=== PATIENT | male | born 1955 | race Two or more races ===

== ENCOUNTER 2024-11-13 17:57 | Inpatient (IN) | payer MEDICAID ==
[~2024-11-13] VITALS: Ht 147.3 cm; Wt 65.1 kg
[~2024-11-13 17:57] MED LIST: APIX5TAB3 PO; ATOR-2; DIGO125T PO; FINA5TAB11; FURO40TA4; INSU100I39 SQ; LISI2.5T14; METO-395 PO
[2024-11-13] MEDS ORDERED: pantoprazole 40mg IV 80 MG in normal saline 100ml IV soln 100 ML IV ONE (18:10)
[2024-11-13] MEDS: pantoprazole 40 MG vial IV ONE (18:20)
[2024-11-13 18:22] LABS: BASOPHILS % (AUTO) 0.9 % (0-1); EOSINOPHILS # (AUTO) 0.1 X10'3 (0-0.9); EOSINOPHILS % (AUTO) 1.6 % (0-6); LYMPHOCYTES # (AUTO) 0.8 X10'3 (1.1-4.8); LYMPHOCYTES % (AUTO) 18.7 % (21-51); MEAN CORPUSCULAR HEMOGLOBIN 28.3 PG (27.0-31.0); MEAN CORPUSCULAR HGB CONC 32.7 g/dL (33.0-36.5); MEAN CORPUSCULAR VOLUME 86.3 FL (78-98); MEAN PLATELET VOLUME 8.2 FL (7.4-10.4); MONOCYTES # (AUTO) 0.3 X10'3 (0-0.9); MONOCYTES % (AUTO) 5.9 % (2-12); NEUTROPHILS # (AUTO) 3.1 X10'3 (1.8-7.7); NEUTROPHILS % (AUTO) 72.9 % (42-75); PLATELET COUNT 142 X10'3 (140-440); RED BLOOD COUNT 1.81 X10'6 (4.70-6.10); RED CELL DISTRIBUTION WIDTH 17.6 % (11.5-14.5); WHITE BLOOD COUNT 4.3 X10'3 (4.5-11.0)
[2024-11-13 18:28] LABS: HEMOGLOBIN 5.1 g/dl (14.0-17.9)
[2024-11-13 18:29] LABS: HEMATOCRIT 15.6 % (42.0-52.0)
[2024-11-13 18:38] LABS: INR 1.5 INR; PROTHROMBIN TIME 15.1 SECONDS (9.0-12.0)
[2024-11-13 18:44] LABS: ALBUMIN 1.2 G/DL (3.4-5.0); ANION GAP -1 (8-16); BLOOD UREA NITROGEN 78 MG/DL (7-18); BUN/CREATININE RATIO 81.3 (10.0-20.0); CALCIUM 7.2 MG/DL (8.5-10.1); CHLORIDE 106 MMOL/L (99-107); CREATININE 0.96 MG/DL (0.60-1.10); GLUCOSE 152 MG/DL (70-104); MAGNESIUM 1.9 MG/DL (1.5-2.4); POTASSIUM 5.5 MMOL/L (3.5-5.1); SODIUM 137 MMOL/L (135-145); TOTAL CARBON DIOXIDE 32.3 MMOL/L (24-32); eCRCL 46 ML/MIN; eGFR 77 ML/MIN
[2024-11-13] MEDS: STERILE IV ONE (19:05)
[2024-11-13] MEDS: WATER FOR INJECTION IV ONE (19:05)
[2024-11-13] MEDS: HUM PROTHROMB CPLX LANS IV ONE (19:05)
[2024-11-13] MEDS ORDERED: midazolam 1 mg/ML 2ml injection IV ONE (19:15)
[2024-11-13] MEDS: normal saline 1000ml 1,000 ML IV ONE (19:31)
[2024-11-13 19:33] LABS: BILIRUBIN,URINE NEGATIVE (Neg); CLARITY,URINE SLIGHTLY CLOUDY (Clear); COLOR,URINE YELLOW (Yellow); GLUCOSE, URINE NEGATIVE (Neg); KETONES,URINE NEGATIVE (Neg); LEUKOCYTE ESTERASE ,URINE SMALL (Neg); NITRITES, URINE NEGATIVE (Neg); OCCULT BLOOD,URINE MODERATE (Neg); PROTEIN,URINE 100 mg/dl (Neg); UROBILINOGEN,URINE 0.2 E.U/dL (0.2-1.0)
[2024-11-13 19:41] LABS: UA COLLECTION TYPE FOLEY CATH
[2024-11-13 19:43] LABS: BACTERIA,URINE NONE SEEN /HPF (Neg); MUCUS STRANDS FEW /LPF (Neg); SQUAMOUS EPITHELIAL CELL,UR FEW /LPF (FEW); YEAST FEW /HPF (NEGATIVE)
[2024-11-13 19:44] LABS: WBC CLUMPS,URINE FEW /HPF (NEGATIVE)
[2024-11-13] MEDS ORDERED: INSU300I12 SQ (19:59)
[2024-11-13] MEDS ORDERED: furosemide IV (19:59)
[2024-11-13] MEDS: calcium chloride 100 MG/1 ML inj IV ONE (20:00)
[2024-11-13 20:09] VITALS: BP 104/63; PULSE 90; RESP 14; TEMP 98.2
[2024-11-13 20:24] VITALS: BP 142/109; PULSE 90; RESP 16; TEMP 98.2
[2024-11-13 20:27] VITALS: BP 108/44; PULSE 86; RESP 18; TEMP 97.4
[2024-11-13 20:50] VITALS: BP 109/54; PULSE 86; RESP 21; TEMP 98.2
[2024-11-13] MEDS: pantoprazole 40MG/NS 100ML BAG 100 ML IV SCH (20:51)
[2024-11-13] MEDS ORDERED: magnesium hydroxide 30ml (MOM) UD suspension PO PRN (21:35)
[2024-11-13] MEDS ORDERED: potassium Cl 20 mEq SR tablet PO PRN ×2 (21:35)
[2024-11-13] MEDS ORDERED: magnesium Cl slow-release 64mg tablet PO PRN (21:35)
[2024-11-13] MEDS ORDERED: magnesium sulf-water 2g/50mL 50 ML IV PRN (21:35)
[2024-11-13] MEDS ORDERED: mag hydrox/Alum hydrox/simeth 30ml oral suspension PO PRN (21:35)
[2024-11-13] MEDS ORDERED: magnesium sulf-water 4G/100mL 100 ML IV PRN (21:35)
[2024-11-13] MEDS ORDERED: ondansetron/PF 4mg/2ml inj IV PRN (21:35)
[2024-11-13] MEDS ORDERED: potassium Cl 40MEQ/1/2NS 520ml 520 ML IV PRN (21:35)
[2024-11-13] MEDS ORDERED: acetaminophen 325mg tablet PO PRN (21:35)
[2024-11-13 22:20] LABS: HEMATOCRIT 27.8 % (42.0-52.0); HEMOGLOBIN 9.3 g/dl (14.0-17.9); MEAN CORPUSCULAR HEMOGLOBIN 29.4 PG (27.0-31.0); MEAN CORPUSCULAR HGB CONC 33.5 g/dL (33.0-36.5); MEAN CORPUSCULAR VOLUME 87.6 FL (78-98); MEAN PLATELET VOLUME 8.6 FL (7.4-10.4); PLATELET COUNT 128 X10'3 (140-440); RED BLOOD COUNT 3.17 X10'6 (4.70-6.10); RED CELL DISTRIBUTION WIDTH 17.7 % (11.5-14.5); WHITE BLOOD COUNT 5.9 X10'3 (4.5-11.0)
[2024-11-13 23:00] VITALS: BP 96/36; PULSE 74; RESP 18; O2SAT 97
[2024-11-13] MEDS ORDERED: DEXTROSE 15 GM of carb/4 tabs (each vial/BOTTLE has 4 tablets) PO PRN ×2 (23:15)
[2024-11-13] MEDS ORDERED: glucagon, human recombinant 1mg kit SUBCUT PRN (23:15)
[2024-11-13] MEDS: morphine 2 MG/ML inj. syringe IV PRN (23:24)
[2024-11-13] MEDS: normal saline 1000ml 1,000 ML IV SCH (23:50)
[2024-11-13] MEDS: CefTRIAXone/D5W-Rocephin 1gm 50 ML IV ONE (23:50)
[2024-11-14] VITALS (29 sets, daily range): BP systolic 58–158; BP diastolic 25–88; PULSE 73–97; RESP 8–24; TEMP 93–98.1; O2SAT 93–100
[2024-11-14 00:29] LABS: HEMATOCRIT 24.3 % (42.0-52.0); HEMOGLOBIN 8.3 g/dl (14.0-17.9); MEAN CORPUSCULAR HEMOGLOBIN 29.5 PG (27.0-31.0); MEAN CORPUSCULAR HGB CONC 34.2 g/dL (33.0-36.5); MEAN CORPUSCULAR VOLUME 86.2 FL (78-98); MEAN PLATELET VOLUME 8.4 FL (7.4-10.4); PLATELET COUNT 117 X10'3 (140-440); RED BLOOD COUNT 2.82 X10'6 (4.70-6.10); RED CELL DISTRIBUTION WIDTH 17.4 % (11.5-14.5); WHITE BLOOD COUNT 5.4 X10'3 (4.5-11.0)
[2024-11-14] MEDS: insulin glargine (Lantus) pen - multi-dose SQ ONE (01:19)
[2024-11-14] MEDS ORDERED: ipratropium/albuterol 3ml nebule NEB PRN (02:20)
[2024-11-14] MEDS ORDERED: ipratropium/albuterol 3ml nebule NEB SCH (03:00)
[2024-11-14] MEDS: INSULIN LISPRO 100 UNIT/ML INSULN.PEN MULTI-DOSE SQ SCH (03:06)
[2024-11-14] MEDS: INSULIN LISPRO 100 UNIT/ML INSULN.PEN MULTI-DOSE SQ ONE (03:12)
[2024-11-14 06:28] LABS: BASOPHILS % (AUTO) 0.8 % (0-1); EOSINOPHILS % (AUTO) 0.6 % (0-6); HEMOGLOBIN 7.4 g/dl (14.0-17.9); LYMPHOCYTES % (AUTO) 19.2 % (21-51); MEAN CORPUSCULAR HEMOGLOBIN 29.9 PG (27.0-31.0); MEAN CORPUSCULAR HGB CONC 34.6 g/dL (33.0-36.5); MEAN CORPUSCULAR VOLUME 86.6 FL (78-98); MEAN PLATELET VOLUME 8.4 FL (7.4-10.4); MONOCYTES # (AUTO) 0.6 X10'3 (0-0.9); MONOCYTES % (AUTO) 10.3 % (2-12); NEUTROPHILS # (AUTO) 3.7 X10'3 (1.8-7.7); NEUTROPHILS % (AUTO) 69.1 % (42-75); PLATELET COUNT 110 X10'3 (140-440); RED BLOOD COUNT 2.48 X10'6 (4.70-6.10); RED CELL DISTRIBUTION WIDTH 17.2 % (11.5-14.5); WHITE BLOOD COUNT 5.4 X10'3 (4.5-11.0)
[2024-11-14 06:39] LABS: HEMATOCRIT 21.4 % (42.0-52.0)
[2024-11-14 06:47] LABS: ALANINE AMINOTRANSFERASE 54 U/L (12-78); ALBUMIN 1.4 G/DL (3.4-5.0); ALBUMIN/GLOBULIN RATIO 0.4 (1.1-1.5); ALKALINE PHOSPHATASE 199 IU/L (46-116); ANION GAP 0 (8-16); ASPARTATE AMINO TRANSFERASE 54 U/L (10-37); BILIRUBIN,TOTAL 1.4 MG/DL (0.1-1.0); BLOOD UREA NITROGEN 79 MG/DL (7-18); BUN/CREATININE RATIO 85.9 (10.0-20.0); CALCIUM 7.8 MG/DL (8.5-10.1); CHLORIDE 106 MMOL/L (99-107); CHOLESTEROL 59 MG/DL (0-200); CREATININE 0.92 MG/DL (0.60-1.10); GLUCOSE 173 MG/DL (70-104); HDL CHOLESTEROL 29 MG/DL (35-60); LDL CHOLESTEROL 25 MG/DL (50-100); MAGNESIUM 2.1 MG/DL (1.5-2.4); POTASSIUM 5.9 MMOL/L (3.5-5.1); SODIUM 137 MMOL/L (135-145); TOTAL CARBON DIOXIDE 30.7 MMOL/L (24-32); TOTAL PROTEIN 5.1 G/DL (6.4-8.2); TRIGLYCERIDES 50 MG/DL (20-135); eCRCL 48 ML/MIN; eGFR 81 ML/MIN
[2024-11-14] MEDS ORDERED: CefTRIAXone/D5W-Rocephin 1gm 50 ML IV SCH (08:00)
[2024-11-14] MEDS ORDERED: metoprolol succinate 25mg (24-HOUR) SR. Tablet PO SCH (08:00)
[2024-11-14] MEDS: K and/or MAG REPLACEMENT MC SCH (08:00)
[2024-11-14] MEDS: docusate sod 100mg capsule PO SCH (08:00)
[2024-11-14] MEDS ORDERED: calcium chloride 100 MG/1 ML inj IV ONE (08:50)
[2024-11-14] MEDS: finasteride 5mg tablet PO SCH (09:17)
[2024-11-14] MEDS: atorvastatin 20mg tablet PO SCH (09:17)
[2024-11-14] MEDS: digoxin 125mcg (0.125mg) tablet PO SCH (09:17)
[2024-11-14 09:52] LABS: MEAN CORPUSCULAR HEMOGLOBIN 29.5 PG (27.0-31.0); MEAN CORPUSCULAR HGB CONC 33.7 g/dL (33.0-36.5); MEAN CORPUSCULAR VOLUME 87.5 FL (78-98); MEAN PLATELET VOLUME 8.9 FL (7.4-10.4); PLATELET COUNT 100 X10'3 (140-440); RED BLOOD COUNT 2.39 X10'6 (4.70-6.10); RED CELL DISTRIBUTION WIDTH 18.2 % (11.5-14.5); WHITE BLOOD COUNT 4.6 X10'3 (4.5-11.0)
[2024-11-14 09:56] LABS: HEMATOCRIT 20.9 % (42.0-52.0)
[2024-11-14] MEDS: insulin regular, human 10 units/0.1 ml syringe IV ONE (09:58)
[2024-11-14] MEDS: calcium chloride 100 MG/1 ML inj IV ONE (10:03)
[2024-11-14] MEDS: dextrose 50%-water 50ml dispensing syringe IV ONE (10:04)
[2024-11-14] MEDS: vancomycin/NS 1 GM ADD-VANTAGE 250 ML IV SCH (10:06)
[2024-11-14] MEDS ORDERED: HYDROcodone/acetaminophen 5mg/325mg tablet PO PRN (11:30)
[2024-11-14] MEDS: dextrose 50%-water 50ml dispensing syringe IV PRN ×2 (12:09→17:29)
[2024-11-14] MEDS ORDERED: LIDOcaine 2% Viscous 15ml cup ONE (15:56)
[2024-11-14] MEDS ORDERED: fentaNYL/PF 50MCG/1 ML 2ML syringe ONE (16:02)
[2024-11-14] MEDS ORDERED: MIDAZolam 1 MG/ML 5ML VIAL ONE (16:02)
[2024-11-14] MEDS ORDERED: epiNEPHrine 0.1mg/ml 10ml syringe ONE (16:03)
[2024-11-14] MEDS ORDERED: simethicone 40mg/0.6ml oral drops 30ml ONE (16:08)
[2024-11-14 17:48] LABS: HEMOGLOBIN 7.4 g/dl (14.0-17.9); MEAN CORPUSCULAR HEMOGLOBIN 30.2 PG (27.0-31.0); MEAN CORPUSCULAR HGB CONC 34.8 g/dL (33.0-36.5); MEAN CORPUSCULAR VOLUME 86.9 FL (78-98); MEAN PLATELET VOLUME 8.7 FL (7.4-10.4); PLATELET COUNT 137 X10'3 (140-440); RED BLOOD COUNT 2.45 X10'6 (4.70-6.10); RED CELL DISTRIBUTION WIDTH 16.8 % (11.5-14.5); WHITE BLOOD COUNT 4.6 X10'3 (4.5-11.0)
[2024-11-14 18:05] LABS: HEMATOCRIT 21.3 % (42.0-52.0)
[2024-11-14 19:37] LABS: HEMOGLOBIN 7.7 g/dl (14.0-17.9); MEAN CORPUSCULAR HEMOGLOBIN 29.2 PG (27.0-31.0); MEAN CORPUSCULAR HGB CONC 33.3 g/dL (33.0-36.5); MEAN CORPUSCULAR VOLUME 87.6 FL (78-98); MEAN PLATELET VOLUME 8.1 FL (7.4-10.4); PLATELET COUNT 110 X10'3 (140-440); RED BLOOD COUNT 2.62 X10'6 (4.70-6.10); RED CELL DISTRIBUTION WIDTH 16.4 % (11.5-14.5); WHITE BLOOD COUNT 3.7 X10'3 (4.5-11.0)
[2024-11-14] MEDS: MEROPENEM 1GM/NACL 50ML IVPB 50 ML IV SCH (19:38)
[2024-11-14] MEDS ORDERED: [UNRECOGNIZED DRUG - OTHER] SQ SCH (21:00)
[2024-11-14] MEDS: insulin glargine (Lantus) pen - multi-dose SQ SCH (21:00)
[2024-11-14] MEDS ORDERED: INSULIN GLARGINE HUM REC ANLOG 10 UNIT SQ SCH (21:00)
[2024-11-14 23:16] LABS: HEMOGLOBIN 7.1 g/dl (14.0-17.9); MEAN CORPUSCULAR HEMOGLOBIN 29.4 PG (27.0-31.0); MEAN CORPUSCULAR HGB CONC 33.8 g/dL (33.0-36.5); MEAN PLATELET VOLUME 8.1 FL (7.4-10.4); PLATELET COUNT 102 X10'3 (140-440); RED BLOOD COUNT 2.41 X10'6 (4.70-6.10); RED CELL DISTRIBUTION WIDTH 16.8 % (11.5-14.5); WHITE BLOOD COUNT 3.6 X10'3 (4.5-11.0)
[2024-11-15] VITALS (7 sets, daily range): BP systolic 96–125; BP diastolic 40–64; PULSE 69–88; RESP 12–24; TEMP 97.2–97.8; O2SAT 90–98
[2024-11-15] MEDS: morphine 2 MG/ML inj. syringe IV PRN (04:06)
[2024-11-15 08:22] LABS: BASOPHILS % (AUTO) 0.8 % (0-1); EOSINOPHILS % (AUTO) 1.3 % (0-6); HEMOGLOBIN 7.3 g/dl (14.0-17.9); LYMPHOCYTES # (AUTO) 0.7 X10'3 (1.1-4.8); LYMPHOCYTES % (AUTO) 17.5 % (21-51); MEAN CORPUSCULAR HEMOGLOBIN 29.4 PG (27.0-31.0); MEAN CORPUSCULAR HGB CONC 33.3 g/dL (33.0-36.5); MEAN CORPUSCULAR VOLUME 88.4 FL (78-98); MEAN PLATELET VOLUME 8.3 FL (7.4-10.4); MONOCYTES # (AUTO) 0.2 X10'3 (0-0.9); MONOCYTES % (AUTO) 6.5 % (2-12); NEUTROPHILS # (AUTO) 2.8 X10'3 (1.8-7.7); NEUTROPHILS % (AUTO) 73.9 % (42-75); PLATELET COUNT 108 X10'3 (140-440); RED BLOOD COUNT 2.49 X10'6 (4.70-6.10); RED CELL DISTRIBUTION WIDTH 16.8 % (11.5-14.5); WHITE BLOOD COUNT 3.8 X10'3 (4.5-11.0)
[2024-11-15 08:39] LABS: ALANINE AMINOTRANSFERASE 42 U/L (12-78); ALBUMIN 1.6 G/DL (3.4-5.0); ALBUMIN/GLOBULIN RATIO 0.4 (1.1-1.5); ALKALINE PHOSPHATASE 175 IU/L (46-116); ANION GAP 4 (8-16); ASPARTATE AMINO TRANSFERASE 36 U/L (10-37); BILIRUBIN,TOTAL 1.1 MG/DL (0.1-1.0); BLOOD UREA NITROGEN 56 MG/DL (7-18); BUN/CREATININE RATIO 63.6 (10.0-20.0); CALCIUM 7.8 MG/DL (8.5-10.1); CHLORIDE 107 MMOL/L (99-107); CREATININE 0.88 MG/DL (0.60-1.10); GLUCOSE 109 MG/DL (70-104); MAGNESIUM 1.9 MG/DL (1.5-2.4); POTASSIUM 4.8 MMOL/L (3.5-5.1); SODIUM 142 MMOL/L (135-145); TOTAL CARBON DIOXIDE 30.6 MMOL/L (24-32); TOTAL PROTEIN 5.4 G/DL (6.4-8.2); eCRCL 50 ML/MIN; eGFR 86 ML/MIN
[2024-11-15 21:58] LABS: HEMATOCRIT 22.6 % (42.0-52.0); HEMOGLOBIN 7.5 g/dl (14.0-17.9); MEAN CORPUSCULAR HEMOGLOBIN 29.6 PG (27.0-31.0); MEAN CORPUSCULAR HGB CONC 33.1 g/dL (33.0-36.5); MEAN CORPUSCULAR VOLUME 89.3 FL (78-98); MEAN PLATELET VOLUME 8.4 FL (7.4-10.4); PLATELET COUNT 119 X10'3 (140-440); RED BLOOD COUNT 2.53 X10'6 (4.70-6.10); WHITE BLOOD COUNT 3.8 X10'3 (4.5-11.0)
[2024-11-15] MEDS: VANCOMYCIN LEVEL IV ONE (22:26)
[2024-11-16] VITALS (8 sets, daily range): BP systolic 90–127; BP diastolic 43–68; PULSE 60–84; RESP 16–20; TEMP 97.4–97.6; O2SAT 92–100
[2024-11-16 08:25] LABS: BASOPHILS % (AUTO) 0.6 % (0-1); EOSINOPHILS % (AUTO) 0.3 % (0-6); HEMATOCRIT 22.3 % (42.0-52.0); HEMOGLOBIN 7.3 g/dl (14.0-17.9); LYMPHOCYTES # (AUTO) 0.6 X10'3 (1.1-4.8); LYMPHOCYTES % (AUTO) 17.9 % (21-51); MEAN CORPUSCULAR HEMOGLOBIN 29.4 PG (27.0-31.0); MEAN CORPUSCULAR HGB CONC 32.7 g/dL (33.0-36.5); MEAN CORPUSCULAR VOLUME 89.9 FL (78-98); MEAN PLATELET VOLUME 8.6 FL (7.4-10.4); MONOCYTES # (AUTO) 0.3 X10'3 (0-0.9); MONOCYTES % (AUTO) 7.7 % (2-12); NEUTROPHILS # (AUTO) 2.4 X10'3 (1.8-7.7); NEUTROPHILS % (AUTO) 73.5 % (42-75); PLATELET COUNT 123 X10'3 (140-440); RED BLOOD COUNT 2.48 X10'6 (4.70-6.10); RED CELL DISTRIBUTION WIDTH 16.8 % (11.5-14.5); WHITE BLOOD COUNT 3.3 X10'3 (4.5-11.0)
[2024-11-16 08:50] LABS: ALANINE AMINOTRANSFERASE 36 U/L (12-78); ALBUMIN 1.8 G/DL (3.4-5.0); ALBUMIN/GLOBULIN RATIO 0.4 (1.1-1.5); ALKALINE PHOSPHATASE 176 IU/L (46-116); ANION GAP 4 (8-16); ASPARTATE AMINO TRANSFERASE 28 U/L (10-37); BLOOD UREA NITROGEN 56 MG/DL (7-18); BUN/CREATININE RATIO 50.5 (10.0-20.0); CHLORIDE 109 MMOL/L (99-107); CREATININE 1.11 MG/DL (0.60-1.10); GLUCOSE 167 MG/DL (70-104); POTASSIUM 5.1 MMOL/L (3.5-5.1); SODIUM 141 MMOL/L (135-145); TOTAL CARBON DIOXIDE 27.8 MMOL/L (24-32); eCRCL 40 ML/MIN; eGFR 65 ML/MIN
[2024-11-16] MEDS: VANCOMYCIN 750MG IV in NS 250 ML IV SCH (10:00)
[2024-11-16] MEDS: HYDROcodone/acetaminophen 10/325mg tab PO PRN (16:46)
[2024-11-17 00:07] VITALS: BP 121/46; PULSE 80; O2SAT 97
[2024-11-17 03:48] VITALS: BP 125/52; RESP 16; TEMP 97.8; O2SAT 97
[2024-11-17 06:00] VITALS: BP 142/71; PULSE 83; RESP 15; TEMP 97.1; O2SAT 99
[2024-11-17 06:43] LABS: BASOPHILS % (AUTO) 0.9 % (0-1); EOSINOPHILS # (AUTO) 0.1 X10'3 (0-0.9); EOSINOPHILS % (AUTO) 1.6 % (0-6); HEMATOCRIT 23.2 % (42.0-52.0); HEMOGLOBIN 7.6 g/dl (14.0-17.9); LYMPHOCYTES # (AUTO) 0.8 X10'3 (1.1-4.8); LYMPHOCYTES % (AUTO) 18.1 % (21-51); MEAN CORPUSCULAR HGB CONC 32.9 g/dL (33.0-36.5); MEAN CORPUSCULAR VOLUME 91.1 FL (78-98); MEAN PLATELET VOLUME 8.7 FL (7.4-10.4); MONOCYTES # (AUTO) 0.5 X10'3 (0-0.9); MONOCYTES % (AUTO) 10.3 % (2-12); NEUTROPHILS # (AUTO) 3.1 X10'3 (1.8-7.7); NEUTROPHILS % (AUTO) 69.1 % (42-75); PLATELET COUNT 148 X10'3 (140-440); RED BLOOD COUNT 2.55 X10'6 (4.70-6.10); RED CELL DISTRIBUTION WIDTH 17.1 % (11.5-14.5); WHITE BLOOD COUNT 4.5 X10'3 (4.5-11.0)
[2024-11-17 07:14] LABS: ALANINE AMINOTRANSFERASE 28 U/L (12-78); ALBUMIN 1.8 G/DL (3.4-5.0); ALBUMIN/GLOBULIN RATIO 0.4 (1.1-1.5); ALKALINE PHOSPHATASE 171 IU/L (46-116); ANION GAP 4 (8-16); ASPARTATE AMINO TRANSFERASE 23 U/L (10-37); BILIRUBIN,TOTAL 0.7 MG/DL (0.1-1.0); BLOOD UREA NITROGEN 53 MG/DL (7-18); BUN/CREATININE RATIO 39.6 (10.0-20.0); CALCIUM 7.8 MG/DL (8.5-10.1); CHLORIDE 109 MMOL/L (99-107); CREATININE 1.34 MG/DL (0.60-1.10); GLUCOSE 171 MG/DL (70-104); POTASSIUM 4.6 MMOL/L (3.5-5.1); SODIUM 142 MMOL/L (135-145); TOTAL CARBON DIOXIDE 29.1 MMOL/L (24-32); TOTAL PROTEIN 6.3 G/DL (6.4-8.2); eCRCL 33 ML/MIN; eGFR 53 ML/MIN
[2024-11-17 08:00] VITALS: RESP 15; O2SAT 99
[2024-11-17 11:00] VITALS: BP 102/76; PULSE 80; RESP 12; TEMP 97; O2SAT 94
[2024-11-17] MEDS: normal saline 1000ml 1,000 ML IV SCH (12:55)
[2024-11-17] MEDS ORDERED: lactose-reduced food (Ensure Enlive) - 237ml bottle PO SCH (17:30)
[2024-11-17] MEDS ORDERED: VANCOMYCIN LEVEL IV ONE (21:30)
== END 2024-11-17 16:15 | DRG 241 ==
LOC: ER 17:58 → ED HOLD 20:39 → EDBEDREQ 20:43 → PCU 3S 22:51
PROVIDERS: ADMIT Surgery Surgical Critical Care; ATTEND Family Medicine
PROC: 30233N1 Transfusion of Nonautologous Red Blood Cells into Peripheral Vein, Percutaneous Approach (ICD-10-PCS; 2024-11-13)
PROC: 0DB78ZX Excision of Stomach, Pylorus, Via Natural or Artificial Opening Endoscopic, Diagnostic (ICD-10-PCS; principal; 2024-11-14)
PROC: 0W3P8ZZ Control Bleeding in Gastrointestinal Tract, Via Natural or Artificial Opening Endoscopic (ICD-10-PCS; 2024-11-14)
PROC: 0DB38ZX Excision of Lower Esophagus, Via Natural or Artificial Opening Endoscopic, Diagnostic (ICD-10-PCS; 2024-11-14)
PROC: 0DB28ZX Excision of Middle Esophagus, Via Natural or Artificial Opening Endoscopic, Diagnostic (ICD-10-PCS; 2024-11-14)
DX: K25.4 Chronic or unspecified gastric ulcer with hemorrhage (principal); R57.1 Hypovolemic shock; E43 Unspecified severe protein-calorie malnutrition; K21.01 Gastro-esophageal reflux disease with esophagitis, with bleeding; I42.9 Cardiomyopathy, unspecified; I48.20 Chronic atrial fibrillation, unspecified; L89.159 Pressure ulcer of sacral region, unspecified stage; I11.0 Hypertensive heart disease with heart failure; Z66 Do not resuscitate; E11.51 Type 2 diabetes mellitus with diabetic peripheral angiopathy without gangrene; D50.0 Iron deficiency anemia secondary to blood loss (chronic); I50.22 Chronic systolic (congestive) heart failure; F15.90 Other stimulant use, unspecified, uncomplicated; N40.0 Benign prostatic hyperplasia without lower urinary tract symptoms; I25.10 Atherosclerotic heart disease of native coronary artery without angina pectoris; N39.0 Urinary tract infection, site not specified; E87.5 Hyperkalemia; T45.515A Adverse effect of anticoagulants, initial encounter; Z89.612 Acquired absence of left leg above knee; Y92.89 Other specified places as the place of occurrence of the external cause; Z79.01 Long term (current) use of anticoagulants; Z79.4 Long term (current) use of insulin; Z89.611 Acquired absence of right leg above knee; Z79.899 Other long term (current) drug therapy; Z95.1 Presence of aortocoronary bypass graft; Z86.718 Personal history of other venous thrombosis and embolism; Z68.30 Body mass index [BMI] 30.0-30.9, adult
CPT/HCPCS: 36415; 36430; 43239; 43255; 71045; 71250; 80048; 80053; 80061; 80202; 81001; 83036; 83605; 83735; 84132; 84145; 84484; 85025; 85027; 85610; 85651; 86885; 86900; 86901; 86920; 87081; 87088; 93005; 94760; 96365; 96375; 97161; 97530; 99291; A6213; A6222; A6243; A6253; A6258; A6402; A6449; A6590; G0378; J0171; J0696; J1815; J2185; J2250; J2270; J2470; J3010; J3370; J3490; J7030; J7040; J7050; J7168; P9016